=== PATIENT | female | born 1965 | race Two or more races ===

== ENCOUNTER 2021-01-31 15:00 | Outpatient (CLI) | payer OTHER | END 2021-01-31 15:30 | disposition home or self-care (01) | LOC: PPH VACUNA 15:00 | PROVIDERS: ATTEND Emergency Medicine Pediatric Emergency Medicine | DX: Z23 Encounter for immunization (principal) ==

== ENCOUNTER 2021-06-18 18:22 | Emergency (ER) | payer OTHER ==
[~2021-06-18] VITALS: Ht 157.5 cm; Wt 72.6 kg
[2021-06-18] MEDS ORDERED: PYRIDIUM DS200 MG PO (22:36)
[2021-06-18] MEDS ORDERED: UTIX PO (22:36)
== END 2021-06-18 22:42 ==
LOC: ER 18:22
DX: N39.0 Urinary tract infection, site not specified (principal)